=== PATIENT | female | born 1995 | race Caucasian/White ===

== ENCOUNTER 2020-11-05 12:48 | Emergency (ER) | payer SELFPAY ==
--- NOTE | 2020-11-05 13:09 | EDM.PDOC ---
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 She states that she has had some pelvic pain all through her but beginning at about 10 PM last night while she was at work she noted that she had some spotting bright red blood and shortly after this she began to have pain that was coming and going but at times quite severe in her right lower quadrant and right pelvic area. It did not radiate. It was a sharp pain. It was not associated with any nausea or vomiting. She has had no fevers or chills. Currently she is rating the pain as a 4/10 but the pain has been up to an 8/10 at its worst. She has continued to have vaginal spotting but has had no passage of clots or fluid. There have been no fevers or chills. She has been able to eat and drink normally. There are no exacerbating actors and no alleviating factors. She is followed by Dr. Donaldson at [facility]. She has had some slight dysuria for the past day or so she has noticed no blood in her urine. She also has had some lower back pain but this has been something that she has had all through her and is not any different today than it has been in the past. There are no other associated signs or symptoms. There are no other modifying factors. 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.) Abdomen Pain Score (Numeric/FACES): 8 - Related Data Allergies Allergy/AdvReac Type Severity Reaction Status Date / Time No Known Allergies Allergy Verified 11/27/12 21:40 Home Meds: Home Meds Pnv No.95/Ferrous Fum/Folic AC [ Vitamin Tablet] 1 tab PO DAILY 11/05/20 [History] lamoTRIgine [Lamotrigine] 100 mg PO DAILY 11/05/20 [History] Past Medical History HEENT History: Reports: Impaired Vision Gastrointestinal History: Reports: GERD, Helicobacter Pylori Musculoskeletal History: Reports: Back Pain, Chronic Other Musculoskeletal History: fx R ankle in past Neurological History: Reports: Migraines Psychiatric History: Reports: Anxiety, Bipolar, Depression Dermatologic History: Reports: Other (See Below) Other Dermatologic History: ACNE - Infectious Disease History Infectious Disease History: Reports: Chicken Pox, Measles - Past Surgical History Cardiovascular Surgical History: Other Surgical History Comment: No previous surgeries. Social & Family History - Tobacco Use Tobacco Use Status *Q: Unknown Ever Used Tobacco (Nonsmoker.) - Alcohol Use Alcohol Use History: No - Living Situation & Occupation Occupation: Employed ED ROS GENERAL - Review of Systems Review Of Systems: See Below Constitutional: Denies: Fever, Chills, Diaphoresis HEENT: Denies: Throat Pain, Throat Swelling Respiratory: Denies: Shortness of Breath, Cough Cardiovascular: Denies: Chest Pain, Palpitations GI/Abdominal: Reports: Abdominal Pain. Denies: Nausea, Vomiting : Reports: Dysuria, Urgency, Other (Vaginal spotting) Musculoskeletal: Reports: Back Pain (Chronic lower back pain). Denies: Neck Pain Skin: Denies: Rash Neurological: Denies: Confusion, Dizziness, Headache Hematologic/Lymphatic: Denies: Easy Bleeding, Easy Bruising ED EXAM - Physical Exam Exam: See Below Exam Limited By: No Limitations General Appearance: Alert Eye Exam: Bilateral Eye: EOMI, Normal Inspection, PERRL Ears: Normal External Exam, Hearing Grossly Normal Nose: Normal Inspection, Normal Mucosa, No Blood Throat/Mouth: Normal Inspection, Normal Lips, Normal Oropharynx, Normal Voice, No Airway Compromise Head: Atraumatic, Normocephalic Neck: Normal Inspection, Supple, Non-Tender, Full Range of Motion Respiratory/Chest: No Respiratory Distress, Lungs Clear, Normal Breath Sounds, No Accessory Muscle Use, Chest Non-Tender Cardiovascular: Normal Peripheral Pulses, Regular Rate, Rhythm, No Murmur GI/Abdominal Exam: Normal Bowel Sounds, Soft, Tender (Tender in her abdomen/pelvis. Uterus is gravid and is somewhat tender to palpation. heart tones are 138.) Heart Tones: Present Heart Tones per Min: 138 Back Exam: Normal Inspection, Full Range of Motion. No: CVA Tenderness (R), CVA Tenderness (L) Extremities: Normal Inspection, Normal Range of Motion, Normal Capillary Refill Neurological: Alert, Oriented, CN II-XII Intact, Normal Cognition, No Motor/Sensory Deficits Psychiatric: Normal Affect Skin Exam: Warm, Dry, Intact, Normal Color, No Rash Course - Vital Signs Last Recorded V/S: Last Vital Signs Temp 36.4 C 11/05/20 12:49 Pulse 84 11/05/20 12:49 Resp 20 11/05/20 12:49 BP 128/71 11/05/20 12:49 Pulse Ox 98 11/05/20 12:49 - Orders/Labs/Meds Labs: Laboratory Tests 11/05/20 Range/Units 13:05 Urine Color Yellow (YELLOW) Urine Appearance Slightly cloudy (CLEAR) Urine pH 7.0 H (5.0-6.5) Ur Specific [place] 1.005 L (1.010-1.025) Urine Protein Negative (NEGATIVE) mg/dL Urine Glucose (UA) Normal (NORMAL) mg/dL Urine Ketones Negative (NEGATIVE) mg/dL Urine Occult Blood Negative (NEGATIVE) Urine Nitrite Negative (NEGATIVE) Urine Bilirubin Negative (NEGATIVE) Urine Urobilinogen Normal (NEGATIVE) mg/dL Ur Leukocyte Esterase Small H (NEGATIVE) Urine WBC 5-10 H (0-5) Ur Squamous Epith Cells Few H (NS,R,O) Urine Bacteria Moderate H (NS) - Re-Assessments/Exams Free Text/Narrative Re-Assessment/Exam: 11/05/20 13:25: I called [facility] call and was trying to speak with OB on-call. The one call nurse will need to call me back with the doctor. The patient's urine did come back and it did show 5-10 white cells per high power field with some bacteria. This urine was sent for culture. 11/05/20 14:40: I discussed patient's case with Dr. Jones, OB physician at [facility] in [place], and she recommends that the patient come up to [facility] in [place] OB triage to be evaluated. She feels the patient could go by private vehicle. I discussed this with the patient and with her and they are in agreement with this plan. The patient remains hemodynamically stable at this point. Departure - Departure Time of Disposition: 14:55 Disposition: DC/Tfer to Acute Hospital 02 Condition: Good (Stable) Clinical Impression: 24 weeks gestation of , Vaginal bleeding, Pelvic pain - Discharge Information Referrals: Lizzie Hein MD [Primary Care Provider] - Forms: ED Department Discharge Additional Instructions: Go directly to the OB triage at [facility] in [facility]. You should not have anything to eat or drink until the have cleared you to do so. Sepsis Event Note (ED) - Evaluation Sepsis Screening Result: No Definite Risk - Focused Exam Vital Signs: Vital Signs Temp Pulse Resp BP Pulse Ox 11/05/20 12:49 36.4 C 84 20 128/71 98
[2020-11-05 16:01] VITALS: BP 120/79; PULSE 77
== END 2020-11-05 15:19 ==
LOC: FB.ED 12:48
DX: O46.92 Antepartum hemorrhage, unspecified, second trimester (principal); Z3A.24 24 weeks gestation of pregnancy
CPT/HCPCS: 81001; 87086; 99284